=== PATIENT | male | born 1995 | race Caucasian/White ===

== ENCOUNTER 2017-10-07 17:57 | Emergency (ER) | payer MEDICAID | END 2017-10-07 20:08 | disposition left against medical advice (07) | LOC: M ED 17:57 | DX: S99.922A Unspecified injury of left foot, initial encounter (principal); Z53.21 Procedure and treatment not carried out due to patient leaving prior to being seen by health care provider ==

== ENCOUNTER 2017-10-15 06:42 | Emergency (ER) | payer MEDICAID ==
[2017-10-15] MEDS: ONDANSETRON 4MG/2ML VIAL (J2405) IV (07:51)
[2017-10-15] MEDS: NS 1,000 ML IV (07:51)
[2017-10-15 08:01] LABS: BASO # 0.1 10^3/uL (0.0-0.2); BASO % 0.5 % (0.0-1.0); EOS # 0.5 10^3/uL (0.0-0.50); EOS % 5.1 % (0.0-3.0); HEMATOCRIT 41.7 % (42.0-52.0); HEMOGLOBIN 14.1 g/dl (13.5-17.5); IMMATURE GRANULOCYTE % 0.3 % (0-3.0); LYMPH % 21.8 % (24.0-44.0); MEAN CORPUSCULAR HEMOGLOBIN 30.5 pg (27.0-33.0); MEAN CORPUSCULAR HGB CONC 33.8 g/dl (32.0-36.5); MEAN CORPUSCULAR VOLUME 90.3 fl (80.0-96.0); MONO # 0.9 10^3/uL (0.0-0.8); MONO % 9.8 % (0.0-5.0); NEUTROPHILS # 5.7 10^3/uL (1.8-7.7); NEUTROPHILS % 62.5 % (36.0-66.0); PLATELET COUNT, AUTOMATED 245 10^3/uL (150-450); RED BLOOD COUNT 4.62 10^6/uL (4.30-6.10); RED CELL DISTRIBUTION WIDTH 12.2 % (11.5-14.5); WHITE BLOOD COUNT 9.2 10^3/uL (4.0-10.0)
[2017-10-15 08:20] LABS: ALBUMIN 3.9 GM/DL (3.2-5.2); ALBUMIN/GLOBULIN RATIO 1.11 (1.00-1.93); ALKALINE PHOSPHATASE 81 U/L (45-117); ALT/SGPT 35 U/L (12-78); AMYLASE 43 U/L (25-115); ANION GAP 6 MEQ/L (8-16); AST/SGOT 24 U/L (7-37); BILIRUBIN,DIRECT < 0.1 MG/DL (0.0-0.2); BILIRUBIN,TOTAL 0.3 MG/DL (0.2-1.0); BLOOD UREA NITROGEN 14 MG/DL (7-18); CALCIUM LEVEL 8.5 MG/DL (8.5-10.1); CARBON DIOXIDE LEVEL 30 MEQ/L (21-32); CHLORIDE LEVEL 105 MEQ/L (98-107); CREATININE FOR GFR 0.87 MG/DL (0.70-1.30); GLUCOSE, FASTING 96 MG/DL (70-100); LIPASE 87 U/L (73-393); POTASSIUM SERUM 4.6 MEQ/L (3.5-5.1); SODIUM LEVEL 141 MEQ/L (136-145); TOTAL PROTEIN 7.4 GM/DL (6.4-8.2)
[2017-10-15] MEDS: KETOROLAC 30 MG/ML VIAL (J1885) IV (08:29)
== END 2017-10-15 09:32 | disposition home or self-care (01) ==
LOC: M ED 06:42
DX: J02.9 Acute pharyngitis, unspecified (principal); R10.84 Generalized abdominal pain; R11.2 Nausea with vomiting, unspecified; R19.7 Diarrhea, unspecified; F17.210 Nicotine dependence, cigarettes, uncomplicated; Z88.1 Allergy status to other antibiotic agents
CPT/HCPCS: J2405

== ENCOUNTER 2018-06-05 19:56 | Emergency (ER) | payer OTHER ==
[~2018-06-05] VITALS: Ht 193 cm; Wt 86.4 kg
[~2018-06-05 19:56] MED LIST: ZOFR4TAB14 PO
[2018-06-05 21:32] LABS: BASO % 0.3 % (0.0-1.0); EOS # 0.3 10^3/uL (0.0-0.50); EOS % 3.9 % (0.0-3.0); HEMATOCRIT 45.9 % (42.0-52.0); HEMOGLOBIN 15.1 g/dl (13.5-17.5); LYMPH % 14.5 % (24.0-44.0); MEAN CORPUSCULAR HEMOGLOBIN 30.2 pg (27.0-33.0); MEAN CORPUSCULAR HGB CONC 32.9 g/dl (32.0-36.5); MEAN CORPUSCULAR VOLUME 91.8 fl (80.0-96.0); MONO # 0.8 10^3/uL (0.0-0.8); MONO % 11.4 % (0.0-5.0); NEUTROPHILS # 4.8 10^3/uL (1.8-7.7); NEUTROPHILS % 69.6 % (36.0-66.0); PLATELET COUNT, AUTOMATED 263 10^3/uL (150-450)
[2018-06-05 21:49] LABS: BLOOD UREA NITROGEN 13 MG/DL (7-18); CALCIUM LEVEL 8.7 MG/DL (8.5-10.1); CARBON DIOXIDE LEVEL 29 MEQ/L (21-32); CHLORIDE LEVEL 105 MEQ/L (98-107); CREATININE FOR GFR 0.97 MG/DL (0.70-1.30); GLUCOSE, FASTING 88 MG/DL (70-100); POTASSIUM SERUM 4.6 MEQ/L (3.5-5.1); SODIUM LEVEL 139 MEQ/L (136-145)
--- NOTE | 2018-06-05 22:28 | REPVR ---
EXAM: US Scrotum EXAM DATE/TIME: 06/05/2018 10:20 PM CLINICAL HISTORY: 22 years old, male; Pain; Scrotum pain; Additional info: B/l testicular pain TECHNIQUE: Imaging protocol: Real-time ultrasound of the scrotum and contents with color Doppler and image documentation. COMPARISON: No relevant prior studies available. FINDINGS: Right Testicle: 4.9 x 2.9 x 3.4 cm. No mass. No torsion. Normal vascular flow. Left Testicle: 5 x 2.8 x 3.1 cm. No mass. No torsion. Normal vascular flow. Epididymides: 5 mm cyst or spermatocele in the left epididymal head. Scrotum: Small left-sided varicocele. No hydrocele. IMPRESSION: 1. No sonographic evidence of testicular torsion or epididymoorchitis. 2. Small left-sided varicocele. 3. 5 mm cyst or spermatocele in the left epididymal head. Electronically signed by: Jeremiah Graham On 06/05/2018 22:27:52 PM
[2018-06-05 22:43] VITALS: BP 126/75
== END 2018-06-05 22:57 | disposition home or self-care (01) ==
LOC: M ED 19:56
DX: I86.1 Scrotal varices (principal); F19.21 Other psychoactive substance dependence, in remission; Z88.1 Allergy status to other antibiotic agents; Z87.891 Personal history of nicotine dependence

== ENCOUNTER → 2018-08-22 | Outpatient (REF) | payer OTHER ==
[2018-08-22 17:14] LABS: APPEARANCE, URINE CLEAR (CLEAR); BACTERIA, URINE AUTO NEGATIVE (NEGATIVE); BILIRUBIN, URINE AUTO NEGATIVE (NEGATIVE); BLOOD, URINE BLOOD NEGATIVE (NEGATIVE); COLOR, URINE YELLOW (YELLOW); GLUCOSE, URINE (UA) AUTO NEGATIVE (NEGATIVE); KETONE, URINE AUTO NEGATIVE (NEGATIVE); LEUKOCYTE ESTERASE, URINE AUTO NEGATIVE (NEGATIVE); MUCUS, URINE SMALL (NEGATIVE); NITRITE, URINE AUTO NEGATIVE (NEGATIVE); PROTEIN, URINE AUTO NEGATIVE (NEGATIVE); RBC, URINE AUTO 0 /HPF (0-3); SPECIFIC GRAVITY URINE AUTO 1.015 (1.002-1.035); SQUAMOUS EPITHELIAL CELL UR AU 0 /HPF (0-6); UROBILINOGEN, URINE AUTO 0.2 mg/dL (0.0-2.0); WBC, URINE AUTO 0 /HPF (0-3)
[2018-08-22 20:40] LABS: CHLAMYDIA DNA AMPLIFICATION NEGATIVE (NEGATIVE); GC DNA AMPLIFICATION NEGATIVE (NEGATIVE)
== END ==
LOC: M SMT 17:01
PROVIDERS: ATTEND Nurse Practitioner Family
DX: N50.819 Testicular pain, unspecified (principal)

== ENCOUNTER → 2018-09-04 | Outpatient (CLI) | payer OTHER ==
[~2018-09-04] MED LIST changes: +DOXY100C37; +PANT40TA3 PO
[2018-09-04 13:03] LABS: HEMATOCRIT 44.6 % (42.0-52.0); MEAN CORPUSCULAR HEMOGLOBIN 30.7 pg (27.0-33.0); MEAN CORPUSCULAR HGB CONC 33.6 g/dl (32.0-36.5); MEAN CORPUSCULAR VOLUME 91.4 fl (80.0-96.0); PLATELET COUNT, AUTOMATED 293 10^3/uL (150-450); RED BLOOD COUNT 4.88 10^6/uL (4.30-6.10); WHITE BLOOD COUNT 8.5 10^3/uL (4.0-10.0)
[2018-09-04 13:14] LABS: INR 1.08; PROTHROMBIN TIME 13.7 SECONDS (11.8-14.0)
[2018-09-04 13:15] LABS: PARTIAL THROMBOPLASTIN TIME 32.9 SECONDS (25.0-38.4)
[2018-09-04 13:32] LABS: BLOOD UREA NITROGEN 13 MG/DL (7-18); CALCIUM LEVEL 9.7 MG/DL (8.5-10.1); CARBON DIOXIDE LEVEL 32 MEQ/L (21-32); CHLORIDE LEVEL 104 MEQ/L (98-107); GLUCOSE, FASTING 92 MG/DL (70-100); POTASSIUM SERUM 4.9 MEQ/L (3.5-5.1); SODIUM LEVEL 140 MEQ/L (136-145)
== END ==
LOC: M LAB 12:22
PROVIDERS: ATTEND Urology
DX: Z01.818 Encounter for other preprocedural examination (principal); N50.812 Left testicular pain; I86.1 Scrotal varices

== ENCOUNTER 2018-09-08 13:44 | Emergency (ER) | payer OTHER ==
[~2018-09-08] VITALS: Ht 193 cm; Wt 84.1 kg
[~2018-09-08 13:44] MED LIST changes: -DOXY100C37; -PANT40TA3 PO
[2018-09-08] MEDS ORDERED: DOXY100C37 (13:49)
[2018-09-08 14:21] LABS: BASO # 0.1 10^3/uL (0.0-0.2); EOS # 0.4 10^3/uL (0.0-0.50); HEMATOCRIT 44.1 % (42.0-52.0); HEMOGLOBIN 15.2 g/dl (13.5-17.5); LYMPH # 1.9 10^3/uL (1.5-6.5); LYMPH % 27.8 % (24.0-44.0); MEAN CORPUSCULAR HEMOGLOBIN 31.2 pg (27.0-33.0); MEAN CORPUSCULAR HGB CONC 34.5 g/dl (32.0-36.5); MEAN CORPUSCULAR VOLUME 90.6 fl (80.0-96.0); MONO # 0.6 10^3/uL (0.0-0.8); MONO % 8.7 % (0.0-5.0); NEUTROPHILS # 3.8 10^3/uL (1.8-7.7); NEUTROPHILS % 56.2 % (36.0-66.0); PLATELET COUNT, AUTOMATED 281 10^3/uL (150-450); RED BLOOD COUNT 4.87 10^6/uL (4.30-6.10); WHITE BLOOD COUNT 6.8 10^3/uL (4.0-10.0)
[2018-09-08 14:42] LABS: ALBUMIN 4.4 GM/DL (3.2-5.2); ALT/SGPT 21 U/L (12-78); BILIRUBIN,DIRECT 0.2 MG/DL (0.0-0.2); BILIRUBIN,TOTAL 0.6 MG/DL (0.2-1.0); BLOOD UREA NITROGEN 13 MG/DL (7-18); CALCIUM LEVEL 9.3 MG/DL (8.5-10.1); CARBON DIOXIDE LEVEL 31 MEQ/L (21-32); CHLORIDE LEVEL 106 MEQ/L (98-107); CREATININE FOR GFR 0.96 MG/DL (0.70-1.30); GLUCOSE, FASTING 90 MG/DL (70-100); LIPASE 77 U/L (73-393); POTASSIUM SERUM 4.5 MEQ/L (3.5-5.1); SODIUM LEVEL 139 MEQ/L (136-145); TOTAL PROTEIN 7.9 GM/DL (6.4-8.2)
[2018-09-08] MEDS ORDERED: SUCRALFATE SUSP 1GM/10ML UD PO ONE (16:15)
[2018-09-08] MEDS ORDERED: PANTOPRAZOLE 40MG INJ (PROTONIX) (C9113) IV ONE (16:15)
[2018-09-08] MEDS ORDERED: ISOVUE-370 76% 100ML VIAL (Q9967) As Ordered ONE (16:16)
--- NOTE | 2018-09-08 16:48 | REP ---
CT abdomen and pelvis with IV but without oral contrast: History history: Right upper quadrant and midabdominal pain. CT contrast dose: 100 ml of intravenous Isovue 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 Lung bases are clear. The liver and the spleen are at the upper range of normal in size. No focal hepatic or splenic lesion is seen. The liver has a midclavicular vertical span of 17 cm and the spleen measures 12.8 cm in greatest diameter. No abnormalities noted in the gallbladder. No adrenal lesion is observed. Pancreas is unremarkable. The kidneys enhance symmetrically are morphologically intact. No retroperitoneal mass or adenopathy is seen. Small and large intestinal bowel loops are normal. No abdominal wall defect is seen. A normal appendix is seen. Seminal vesicles, prostate and urinary bladder are unremarkable. There is no evidence of free intraperitoneal air. There are multiple normal-sized small bowel mesenteric lymph nodes question mesenteric adenitis. No bony lesion is seen. Impression: Liver and spleen at the upper range of normal in size. Multiple normal-sized small bowel mesenteric lymph nodes question mesenteric adenitis. Normal appendix. Otherwise negative. Electronically Signed by Vic Christianson MD 09/08/2018 04:39 P
[2018-09-08] MEDS ORDERED: PANT40TA3 PO (19:43)
[2018-09-08 20:02] VITALS: BP 117/74
== END 2018-09-08 20:03 | disposition home or self-care (01) ==
LOC: M ED 13:44
DX: I88.0 Nonspecific mesenteric lymphadenitis (principal); K29.70 Gastritis, unspecified, without bleeding; K21.9 Gastro-esophageal reflux disease without esophagitis; Z88.1 Allergy status to other antibiotic agents
CPT/HCPCS: 74177; 80048; 80076; 81001; 83690; 85025; 96374; 99284; C9113; Q9967

== ENCOUNTER 2018-09-12 09:23 | Day surgery (SDC) | payer OTHER ==
[~2018-09-12] VITALS: Ht 193 cm; Wt 83.9 kg
[~2018-09-12 09:23] MED LIST changes: +DOXY100C37; +LR 1,000 ML IV ONE; +PANT40TA3 PO
[2018-09-12] MEDS ORDERED: BUPIVACAINE HCL 0.25% 30 ML VIAL As Ordered ONE (10:14)
[2018-09-12] MEDS ORDERED: ceFAZolin 2 GM/D5W 50 ML IV BAG (J0690 PER 500MG) As Ordered ONE (10:15)
[2018-09-12] MEDS ORDERED: PROPOFOL 200 MG/20 ML VIAL As Ordered ONE (10:34)
[2018-09-12] MEDS ORDERED: fentaNYL 250 MCG/5 ML INJECTION (J3010) As Ordered ONE (10:34)
[2018-09-12] MEDS ORDERED: LIDOCAINE 2% INJ 100 MG/5 ML SDV (FOR ANES.) As Ordered ONE (10:34)
[2018-09-12] MEDS ORDERED: MIDAZOLAM INJ 2 MG/2 ML VIAL (J2250) As Ordered ONE (10:35)
[2018-09-12] MEDS ORDERED: ACETAMINOPHEN 1000MG 100ML IV BTL (OFIRMEV) (J0131 PER 10MG) As Ordered ONE (11:41)
[2018-09-12] MEDS ORDERED: dexameTHASONE 4 MG/ML 1ML VIAL (J1100) As Ordered ONE (11:42)
[2018-09-12] MEDS ORDERED: KETOROLAC 60 MG/2 ML VIAL (J1885) As Ordered ONE (11:42)
[2018-09-12] MEDS ORDERED: ONDANSETRON 4MG/2ML VIAL (J2405) As Ordered ONE ×2 (11:42→12:42)
[2018-09-12] MEDS ORDERED: fentaNYL 100 MCG/2 ML INJECTION (J3010) As Ordered ONE (13:04)
[2018-09-12] MEDS ORDERED: PERCOCET 5MG/325MG TAB As Ordered ONE (13:04)
[2018-09-12] MEDS: fentaNYL 100 MCG/2 ML INJECTION (J3010) IV PRN ×4 (13:05→13:20)
[2018-09-12] MEDS: PERCOCET 5MG/325MG TAB PO PRN ×2 (13:05→13:35)
[2018-09-12] MEDS ORDERED: LR 1,000 ML IV SCH (13:15)
[2018-09-12] MEDS ORDERED: PERCOCET 5MG/325MG TAB PO PRN (13:15)
[2018-09-12] MEDS ORDERED: ONDANSETRON 4MG/2ML VIAL (J2405) IV PRN (13:15)
[2018-09-12 14:17] VITALS: BP 141/77
--- NOTE | 2018-09-13 22:25 | RO ---
DATE OF PROCEDURE: 09/12/2018 PREPROCEDURE DIAGNOSIS: Left varicocele. POSTPROCEDURE DIAGNOSIS: Left varicocele. PROCEDURE: Left varicocelectomy. SURGEON: Dr. Lambert Manzanares [employer]ER: None. ANESTHESIA: General. OPERATIVE INDICATIONS: This 22-year-old male with a symptomatic grade 2 left varicocele was brought to the operating room today for treatment. DESCRIPTION OF PROCEDURE: The patient was brought to the operating room and general anesthesia induced. Prophylactic antibiotics were infused. He was then placed in the supine position and prepped and draped in the usual sterile fashion. At this point, an approximately 3-4 cm incision was made over the left external inguinal ring. This was carried down through the subcutaneous tissues. The fascia was then opened using scissors. At this point, the spermatic cord was dissected out and a [place] drain was placed beneath the spermatic cord to lift it up. I then carefully dissected through the cremasteric fibers and found at least three dilated veins. These veins were each ligated using #2-0 Vicryl sutures and then transected in between. I found a few additional smaller veins, and I also ligated these with #2-0 Vicryl sutures and transected in between. I did identify the artery, and it was not damaged during the procedure. I also identified the vas deferens, and it was not damaged. Once satisfied that all of the veins had been ligated and transected, the [place] drain was removed. Hemostasis was confirmed. I then closed the fascia using a running #2-0 Vicryl suture. The wound was then thoroughly irrigated with saline. I then closed the skin with a running subcuticular #4-0 Monocryl suture. Local anesthetic was applied, and then Dermabond was applied, and this marked the conclusion of the procedure. The patient was then awakened from anesthesia, transferred to the recovery room in stable condition. Estimated blood loss: 5 mL. Complications: None. Specimens: None. PLAN: The patient will followup in the clinic in 2-3 weeks for a postoperative visit. JANINE
== END 2018-09-12 14:38 | disposition home or self-care (01) ==
LOC: M SDC 09:23
PROVIDERS: ATTEND Urology
DX: I86.1 Scrotal varices (principal); Z91.040 Latex allergy status; Z88.1 Allergy status to other antibiotic agents; Z79.899 Other long term (current) drug therapy; Z72.0 Tobacco use
CPT/HCPCS: 55535; J0131; J0690; J1100; J1885; J2250; J2405; J3010

== ENCOUNTER 2019-07-21 10:53 | Emergency (ER) | payer OTHER ==
[~2019-07-21] VITALS: Ht 193 cm; Wt 92.4 kg
[~2019-07-21 10:53] MED LIST changes: -LR 1,000 ML IV ONE
[2019-07-21 11:35] LABS: BASO % 0.7 % (0.0-1.0); EOS # 0.4 10^3/uL (0.0-0.5); EOS % 6.7 % (0.0-3.0); HEMOGLOBIN 14.4 g/dl (13.5-17.5); LYMPH # 1.3 10^3/uL (1.5-5.0); LYMPH % 23.8 % (24.0-44.0); MEAN CORPUSCULAR HEMOGLOBIN 29.7 pg (27.0-33.0); MEAN CORPUSCULAR HGB CONC 33.5 g/dl (32.0-36.5); MEAN CORPUSCULAR VOLUME 88.7 fl (80.0-96.0); MONO # 0.4 10^3/uL (0.0-0.8); MONO % 7.4 % (0.0-5.0); NEUTROPHILS # 3.3 10^3/uL (1.5-8.5); NEUTROPHILS % 61.2 % (36.0-66.0); PLATELET COUNT, AUTOMATED 262 10^3/uL (150-450); RED BLOOD COUNT 4.85 10^6/uL (4.30-6.10); WHITE BLOOD COUNT 5.4 10^3/uL (4.0-10.0)
[2019-07-21] MEDS ORDERED: IBUP-1114 PO (11:38)
[2019-07-21 11:47] LABS: INR 1.13; PROTHROMBIN TIME 14.2 SECONDS (11.8-14.0)
[2019-07-21 11:48] LABS: PARTIAL THROMBOPLASTIN TIME 31.5 SECONDS (25.0-38.4)
[2019-07-21] MEDS ORDERED: NS 1,000 ML IV ONE (12:00)
[2019-07-21 12:28] LABS: ALBUMIN 4.4 GM/DL (3.2-5.2); ALT/SGPT 25 U/L (12-78); AMYLASE 42 U/L (25-115); BILIRUBIN,DIRECT 0.2 MG/DL (0.0-0.2); BILIRUBIN,TOTAL 0.5 MG/DL (0.2-1.0); CK-MB VALUE MASS 1.5 NG/ML (<3.6); CPK CREATINE PHOSPHOKINASE 147 U/L (39-308); LIPASE 69 U/L (73-393); MB/CK RELATIVE INDEX 1.02 (< OR =4); TOTAL PROTEIN 7.6 GM/DL (6.4-8.2); TROPONIN I < 0.02 NG/ML (< 0.10)
--- NOTE | 2019-07-21 13:18 | REP ---
Clinical: Acute abdominal pain. Technique: Upright view of the chest with supine and upright views of the abdomen and pelvis. Findings: Frontal upright view of the chest demonstrates no acute cardiopulmonary process or free air below the diaphragm to suspect pneumoperitoneum. Supine and upright views of the abdomen and pelvis demonstrate nonspecific bowel gas pattern without obstruction or perforation. Fecal stasis and constipation cannot be excluded. No organomegaly. No abnormal calcifications. Skeletal structures normal for age. Impression: Fecal stasis and constipation cannot be excluded. Electronically Signed by Gordon Lo MD 07/21/2019 01:10 P
[2019-07-21] MEDS ORDERED: GLYCERIN ADULT SUPP PR ONE (13:45)
--- NOTE | 2019-07-21 13:53 | REP ---
Clinical: Right upper quadrant pain. Technique: Real time segovia scale and color evaluation using curved array transducer. Findings: Liver and pancreas are normal in contour, size, and echogenicity without focal hepatic or pancreatic lesion identified. Gallbladder demonstrates multiple small echogenic foci without significant shadowing suggesting polyps and/or small sludge balls. No wall thickening or pericholecystic fluid is appreciated. No biliary ductal dilatation is appreciated and the common bile duct measures 5 mm diameter. Right kidney is normal in reniform shape and without hydronephrosis measuring 10.9 x 5.0 x 5.0 cm. No ascites. Impression: 1. Gallbladder demonstrates few small polyps versus sludge balls measuring up to 6 mm. No further gallbladder or biliary abnormalities are appreciated by ultrasound. Consider follow-up examination at 6 - 12 months. 2. Otherwise unremarkable right upper quadrant ultrasound. Electronically Signed by Gordon Lo MD 07/21/2019 01:44 P
[2019-07-21] MEDS ORDERED: COLA100C5 PO (14:29)
[2019-07-21] MEDS ORDERED: MAGNESIUM CITRATE 300 ML BTL PO ONE (14:45)
[2019-07-21 14:49] VITALS: BP 149/74
== END 2019-07-21 14:48 | disposition home or self-care (01) ==
LOC: M ED 10:53
DX: K59.00 Constipation, unspecified (principal); K83.9 Disease of biliary tract, unspecified; R10.11 Right upper quadrant pain; R11.10 Vomiting, unspecified; K21.9 Gastro-esophageal reflux disease without esophagitis; K27.9 Peptic ulcer, site unspecified, unspecified as acute or chronic, without hemorrhage or perforation; F17.200 Nicotine dependence, unspecified, uncomplicated; Z88.1 Allergy status to other antibiotic agents; Z79.899 Other long term (current) drug therapy

== ENCOUNTER 2019-09-04 13:40 | Emergency (ER) | payer OTHER ==
[~2019-09-04] VITALS: Ht 193 cm; Wt 89.8 kg
[~2019-09-04 13:40] MED LIST changes: +COLA100C5 PO; +IBUP-1114 PO; +PANT40TA29 PO; -PANT40TA3 PO
[2019-09-04 14:36] LABS: BASO # 0.1 10^3/uL (0.0-0.2); EOS # 0.2 10^3/uL (0.0-0.5); EOS % 3.6 % (0.0-3.0); HEMATOCRIT 39.9 % (42.0-52.0); HEMOGLOBIN 13.5 g/dl (13.5-17.5); LYMPH # 1.4 10^3/uL (1.5-5.0); MEAN CORPUSCULAR HEMOGLOBIN 30.3 pg (27.0-33.0); MEAN CORPUSCULAR HGB CONC 33.8 g/dl (32.0-36.5); MEAN CORPUSCULAR VOLUME 89.5 fl (80.0-96.0); MONO # 0.5 10^3/uL (0.0-0.8); MONO % 10.3 % (0.0-5.0); NEUTROPHILS % 57.7 % (36.0-66.0); PLATELET COUNT, AUTOMATED 243 10^3/uL (150-450); RED BLOOD COUNT 4.46 10^6/uL (4.30-6.10); WHITE BLOOD COUNT 5.2 10^3/uL (4.0-10.0)
[2019-09-04] MEDS ORDERED: NS 1,000 ML IV ONE (14:45)
[2019-09-04 14:59] LABS: ALBUMIN 4.6 GM/DL (3.2-5.2); ALT/SGPT 19 U/L (12-78); BILIRUBIN,DIRECT 0.2 MG/DL (0.0-0.2); BILIRUBIN,TOTAL 0.5 MG/DL (0.2-1.0); CPK CREATINE PHOSPHOKINASE 135 U/L (39-308); LIPASE 106 U/L (73-393); MB/CK RELATIVE INDEX 0.74 (< OR =4); TOTAL PROTEIN 7.8 GM/DL (6.4-8.2); TROPONIN I < 0.02 NG/ML (< 0.10)
[2019-09-04] MEDS ORDERED: OMEP40CA97 PO (15:36)
[2019-09-04 15:40] VITALS: BP 134/72
[2019-09-04] MEDS ORDERED: PANTOPRAZOLE 40MG VIAL (C9113 PER 1) IV ONE (15:45)
--- NOTE | 2019-09-05 | REP ---
ABDOMINAL SERIES: Supine and erect views of the abdomen are performed. There is no free intraperitoneal air and no evidence of small bowel obstruction. No dilated small bowel loops are seen. There are a few stable phleboliths in the pelvis, as seen on prior study of 07/21/2019. An accompanying view of the chest demonstrates no acute infiltrate. Heart and mediastinum are within normal limits and unchanged. IMPRESSION: Negative abdominal series. Electronically Signed by Sean Wylie MD 09/07/2019 10:41 P
--- NOTE | 2019-09-05 10:12 | ECGEPIP ---
[facility] - ED Test Date: 2019-09-04 Pat Name: TY ABREU Department: Room: - Gender: Male International Controller: [place] [id number] : 1995 Requested By: RADHA Florence PA-C Order Number: [id number] Reading MD: Phuong Lopez Measurements Intervals [place] Rate: 79 P: 61 [place]: 143 QRS: 52 QRSD: 93 T: 11 QT: 360 QTc: 414 Interpretive Statements SINUS RHYTHM NO PRIOR Electronically Signed on 09-05-2019 10:12:13 EDT by Phuong Lopez
== END 2019-09-04 15:52 | disposition home or self-care (01) ==
LOC: M ED 13:40
DX: R10.9 Unspecified abdominal pain (principal); R11.2 Nausea with vomiting, unspecified; K21.9 Gastro-esophageal reflux disease without esophagitis; Z79.899 Other long term (current) drug therapy; Z83.79 Family history of other diseases of the digestive system; Z87.891 Personal history of nicotine dependence; Z88.8 Allergy status to other drugs, medicaments and biological substances
CPT/HCPCS: 74021; 80047; 80076; 81001; 82550; 82553; 83690; 85025; 93005; 96361; 96374; 99284; C9113

== ENCOUNTER 2019-09-23 13:47 | Emergency (ER) | payer OTHER ==
[~2019-09-23 13:47] MED LIST changes: +OMEP40CA97 PO
== END 2019-09-23 15:30 | disposition home or self-care (01) ==
LOC: M ED 13:47
DX: B34.9 Viral infection, unspecified (principal); Z88.2 Allergy status to sulfonamides; K21.9 Gastro-esophageal reflux disease without esophagitis; Z20.828 Contact with and (suspected) exposure to other viral communicable diseases
CPT/HCPCS: 99282; U0002

== ENCOUNTER 2019-10-13 06:30 | Emergency (ER) | payer OTHER | END 2019-10-13 06:35 | disposition home or self-care (01) | LOC: M ED 06:30 | DX: T75.89XA Other specified effects of external causes, initial encounter (principal); X08.8XXA Exposure to other specified smoke, fire and flames, initial encounter; Y92.9 Unspecified place or not applicable; Y93.G3 Activity, cooking and baking; Y99.9 Unspecified external cause status; Z88.8 Allergy status to other drugs, medicaments and biological substances ==